=== PATIENT | female | born 1950 | race Caucasian/White ===

== ENCOUNTER 2018-03-03 19:29 | Observation (INO) | payer MEDICARE, MEDICAID ==
[~2018-03-03] VITALS: Ht 162.6 cm; Wt 60.3 kg
[2018-03-03] MEDS ORDERED: QUET100T PO (19:50)
[2018-03-03] MEDS ORDERED: PROP60TA15 PO (19:50)
[2018-03-03] MEDS ORDERED: GABA-549 PO (19:50)
[2018-03-03] MEDS ORDERED: ATOR10TA65 PO (19:50)
[2018-03-03] MEDS ORDERED: MELO-205 PO (19:50)
[2018-03-03] MEDS ORDERED: LAMO150T36 PO (19:50)
--- NOTE | 2018-03-03 20:17 | ER Report ---
History and Physical Time Seen By MD: 20:00 Hx. of Stated Complaint: Patient states she has fainted/collapsed twice within the past 6 weeks HPI/ROS CHIEF COMPLAINT: Falls and imbalance over the last 6 weeks HISTORY OF PRESENT ILLNESS: 67-year-old female patient presents to emergency room with complaint of falls and imbalance of the last 6 weeks. Patient states she wants her blood pressure checked. She states that she has had some falls where she has been walking and then she falls. She is unsure as to why. She states that she is not had any chest pain, shortness of breath, dizziness. She states that there are times where she sways back and forth when she is walking. She states she's not had any weakness in her extremities. She states that she currently has been taking Lamictal but has been on that for a number of years. She is wondering if that could be related to her problems. She states she does see [facility], however does not have a primary care provider. REVIEW OF SYSTEMS: Respiratory: No cough, no dyspnea. Cardiovascular: No chest pain, no palpitations. Gastrointestinal: No vomiting, no abdominal pain. Musculoskeletal: No back pain. Allergies: Coded Allergies: Penicillins (Verified Allergy, Unknown, 03/03/18) Home Meds Reported Medications Lamotrigine (LAMOTRIGINE) 150 Mg Tablet, 150 MG PO DAILY 03/03/18 Atorvastatin Calcium (ATORVASTATIN CALCIUM) 10 Mg Tablet, 1 TAB PO QDAY, TAB 03/03/18 Quetiapine Fumarate (QUETIAPINE FUMARATE) 100 Mg Tablet, 100 MG PO HS 03/03/18 Meloxicam (MELOXICAM) 7.5 Mg Tablet, 7.5 MG PO QDAY 03/03/18 Propranolol Hcl (PROPRANOLOL HCL) 60 Mg Tablet, 40 MG PO BID 03/03/18 Gabapentin (GABAPENTIN) 300 Mg Capsule, 300 MG PO QDAY, CAPSULE 2 caps in AM, 3 caps at HS 03/03/18 Past Medical/Surgical History Patient has a past medical history of hyperlipidemia, bipolar depression. Patient has a surgical history of colectomy. Reviewed Nurses Notes: Yes Constitutional Vital Sign - Last 24 Hours 03/03/18 03/03/18 03/03/18 03/03/18 19:38 19:39 19:59 20:00 Temp 99.3 Pulse 80 69 Resp 15 9 B/P (MAP) 129/84 129/84 (99) 105/66 (79) Pulse Ox 89 O2 Delivery Room Air 03/03/18 03/03/18 03/03/18 03/03/18 20:05 20:20 20:30 20:35 Pulse 69 69 72 Resp 17 24 14 B/P (MAP) 121/71 (88) Pulse Ox 92 92 92 03/03/18 20:50 Pulse 71 Resp 13 Pulse Ox 94 Physical Exam General Appearance: The patient is alert, has no immediate need for airway protection and no current signs of toxicity. Respiratory: Chest is non tender, lungs are clear to auscultation. Cardiac: regular rate and rhythm Gastrointestinal: Abdomen is soft and non tender, no masses, bowel sounds normal. Musculoskeletal: Neck: Neck is supple and non tender. Extremities have full range of motion and are non tender. Skin: No rashes or lesions. Neuro: Patient alert and oriented 4, cranial nerves II through XII grossly intact. DIFFERENTIAL DIAGNOSIS: After history and physical exam differential diagnosis was considered for weakness including but not limited to electrolyte abnormality, depression, anxiety, CVA, spinal cord abnormality, and infectious causes. Medical Decision Making Data Points Result Diagram: 03/03/18202903/03/182029 Laboratory Hematology Test 03/03/18 20:30 Red Blood Count 4.25 M/uL (4.17-5.56) Mean Corpuscular Volume 89.2 fL (80.0-96.0) Mean Corpuscular Hemoglobin 30.2 pg (26.0-33.0) Mean Corpuscular Hemoglobin Concent 33.9 g/dL (32.0-36.0) Red Cell Distribution Width 13.7 % (11.5-14.5) Mean Platelet Volume 8.9 fL (7.2-11.1) Neutrophils (%) (Auto) 64.0 % (39.4-72.5) Lymphocytes (%) (Auto) 20.0 % (17.6-49.6) Monocytes (%) (Auto) 8.6 % (4.1-12.4) Eosinophils (%) (Auto) 6.9 % (0.4-6.7) Basophils (%) (Auto) 0.5 % (0.3-1.4) Nucleated RBC Relative Count (auto) 0.0 /100WBC Neutrophils # (Auto) 4.0 K/uL (2.0-7.4) Lymphocytes # (Auto) 1.3 K/uL (1.3-3.6) Monocytes # (Auto) 0.5 K/uL (0.3-1.0) Eosinophils # (Auto) 0.4 K/uL (0.0-0.5) Basophils # (Auto) 0.0 K/uL (0.0-0.1) Nucleated RBC Absolute Count (auto) 0.00 K/uL Sodium Level 143 mmol/L (137-145) Potassium Level 4.7 mmol/L (3.5-5.0) Chloride Level 107 mmol/L (98-107) Carbon Dioxide Level 28 mmol/L (22-31) Blood Urea Nitrogen 30 mg/dl (7-18) Creatinine 2.00 mg/dl (0.52-1.04) Glomerular Filtration Rate Calc 24.9 Random Glucose 99 mg/dl (75-110) Calcium Level 9.0 mg/dl (8.4-10.2) Total Bilirubin 0.3 mg/dl (0.2-1.3) Aspartate Amino Transf (AST/SGOT) 19 U/L (0-35) Alanine Aminotransferase (ALT/SGPT) 21 U/L (0-56) Alkaline Phosphatase 76 U/L (0-126) Troponin I < 0.012 ng/ml Total Protein 6.6 g/dl (6.3-8.2) Albumin 3.6 g/dl (3.5-5.0) Chemistry Test 03/03/18 20:30 White Blood Count 6.3 k/uL (4.5-11.0) Red Blood Count 4.25 M/uL (4.17-5.56) Hemoglobin 12.8 g/dL (12.0-16.0) Hematocrit 37.9 % (34.0-47.0) Mean Corpuscular Volume 89.2 fL (80.0-96.0) Mean Corpuscular Hemoglobin 30.2 pg (26.0-33.0) Mean Corpuscular Hemoglobin Concent 33.9 g/dL (32.0-36.0) Red Cell Distribution Width 13.7 % (11.5-14.5) Platelet Count 260 K/uL (150-450) Mean Platelet Volume 8.9 fL (7.2-11.1) Neutrophils (%) (Auto) 64.0 % (39.4-72.5) Lymphocytes (%) (Auto) 20.0 % (17.6-49.6) Monocytes (%) (Auto) 8.6 % (4.1-12.4) Eosinophils (%) (Auto) 6.9 % (0.4-6.7) Basophils (%) (Auto) 0.5 % (0.3-1.4) Nucleated RBC Relative Count (auto) 0.0 /100WBC Neutrophils # (Auto) 4.0 K/uL (2.0-7.4) Lymphocytes # (Auto) 1.3 K/uL (1.3-3.6) Monocytes # (Auto) 0.5 K/uL (0.3-1.0) Eosinophils # (Auto) 0.4 K/uL (0.0-0.5) Basophils # (Auto) 0.0 K/uL (0.0-0.1) Nucleated RBC Absolute Count (auto) 0.00 K/uL Glomerular Filtration Rate Calc 24.9 Calcium Level 9.0 mg/dl (8.4-10.2) Total Bilirubin 0.3 mg/dl (0.2-1.3) Aspartate Amino Transf (AST/SGOT) 19 U/L (0-35) Alanine Aminotransferase (ALT/SGPT) 21 U/L (0-56) Alkaline Phosphatase 76 U/L (0-126) Troponin I < 0.012 ng/ml Total Protein 6.6 g/dl (6.3-8.2) Albumin 3.6 g/dl (3.5-5.0) EKG/Imaging EKG Interpretation 12 lead EKG: Rhythm: normal sinus rhythm [place]: Left axis deviation QRS: normal ST segments: Nonspecific T-wave abnormality Imaging EXAMINATION: Chest 2 Views HISTORY: Falls. COMPARISON: None. FINDINGS: The lungs are clear. No focal consolidation or pleural fluid. No pneumothorax. Normal cardiomediastinal silhouette, with normal heart size and pulmonary va scularity. Visualized osseous structures are unremarkable. IMPRESSION: No evidence of acute cardiopulmonary disease. Report Dictated By: Fracisco Momin MD at 03/03/2018 9:10 PM Report E-Signed By: Fracisco Momin MD at 03/03/2018 9:14 PM ED Course/Re-evaluation ED Course Patient was admitted and examined, history and physical were obtained. The differential diagnoses were considered. On examination lungs were clear, heart was regular, abdomen was soft nontender. Patient had good strength in both upper extremities and lower extremities. Cranial nerves II through XII grossly intact. A CBC, CMP, troponin, EKG, chest x-ray done. Patient had a normal white count, troponin was negative, EKG showed a normal sinus rhythm with left axis deviation, chest x-ray was normal. Patient did have an elevated creatinine of 2.0 with a BUN of 30. I discussed the findings with the patient. I'll concerned about possible acute renal failure. I would like to go ahead and admit her. Patient was initially very hesitant. She ultimately did agree. I discussed the case with Dr. Beltran, hospitalist, who agreed to accept the patient for admission. Patient will be admitted with diagnosis of acute renal failure. Decision to Disposition Date: Mar 03, 2018 Decision to Disposition Time: 21:31 Depart Departure Latest Vital Signs Vital Signs Date Time Temp Pulse Resp B/P (MAP) Pulse Ox O2 Delivery O2 Flow Rate FiO2 03/03/18 20:50 71 13 94 03/03/18 20:30 121/71 (88) 03/03/18 19:38 99.3 Room Air Impression: Primary Impression: Acute kidney failure Condition: Condition Unchanged Disposition: Admitted from ER Problem Qualifiers Primary Impression: Acute kidney failure Acute renal failure type: unspecified Qualified Codes: N17.9 - Acute k idney failure, unspecified CALE ESPARZA Mar 03, 2018 20:17
[2018-03-03 20:40] LABS: PLATELET COUNT, AUTOMATED 260 K/uL (150-450)
--- NOTE | 2018-03-03 20:48 | EKG ---
FACILITY: [facility] PATIENT NAME: VIRIDIANA ISLAS : [id number] MR: [id number] V: [id number] EXAM DATE: ORDERING PHYSICIAN: CALE ESPARZA TECHNOLOGIST: RADHA Test Reason : FALLS Blood Pressure : / mmHG Vent. Rate : 069 BPM Atrial Rate : 069 BPM P-R Int : 134 ms QRS Dur : 102 ms QT Int : 400 ms P-R-T Axes : 029 -44 022 degrees QTc Int : 428 ms Normal sinus rhythm Left axis deviation Anterior infarct , age undetermined Abnormal ECG No previous ECGs available Confirmed by Leroy Lynne ([id number]) on 03/03/2018 11:58:13 PM Referred By: Confirmed By:Leroy Marks
--- NOTE | 2018-03-03 21:18 | RADIOLOGY IMAGING REPORT ---
FACILITY: [facility] PATIENT NAME: James Cook : 1950 MR: [id number] V: [id number] EXAM DATE: ORDERING PHYSICIAN: CALE ESPARZA TECHNOLOGIST: Location: [facility] [place] Patient: James Cook : 1950 Visit/Account:[id number] Date of Sevice: 03/03/2018 EXAMINATION: Chest 2 Views HISTORY: Falls. COMPARISON: None. FINDINGS: The lungs are clear. No focal consolidation or pleural fluid. No pneumothorax. Normal cardiomedias tinal silhouette, with normal heart size and pulmonary vascularity. Visualized osseous structures ar e unremarkable. IMPRESSION: No evidence of acute cardiopulmonary disease. Report Dictated By: Fracisco Momin MD at 03/03/2018 9:10 PM Report E-Signed By: Fracisco Momin MD at 03/03/2018 9:14 PM WSN:[id number]
[2018-03-03 22:32] VITALS: BP 148/68
[2018-03-03] MEDS ORDERED: PROP40TA45 PO (23:22)
[2018-03-03] MEDS ORDERED: NS(*) 0.9% 1000 ML BAG 1,000 ML IV PRN (23:28)
[2018-03-03] MEDS ORDERED: ONDANSETRON 4 MG/2 ML VIAL IVP PRN (23:30)
[2018-03-03] MEDS ORDERED: FLUSH 10 ML SYR IVP PRN (23:30)
[2018-03-03] MEDS ORDERED: INFLUENZA VIRUS VAC 0.5ML SYR IM ONLY ONE (23:30)
[2018-03-03] MEDS ORDERED: ACETAMINOPHEN 325 MG TAB PO PRN (23:30)
--- NOTE | 2018-03-03 23:47 | History & Physical ---
History of Present Illness Chief Complaint Unsteadiness History of Present Illness 67F presented with concern for unsteadiness over last couple of weeks. PMHx significant for chronic knee and back pain as well as schizophrenia. Reports times wheree she had to lean on celary to feel steady, was concerned so came to ER. Work up was negative but she was noted to have Cr of 2. Denies previous Hx of renal problems, followed with PCP up until moving from [place] in November. Denies any recent illness but does think she has been dehydrated since her s upplier of Lamictal changed at the pharmacy. History Problems: (1) Schizophrenia (2) Chronic pain Home Meds Reported Medications Propranolol Hcl (PROPRANOLOL HCL) 40 Mg Tablet, 40 MG PO BID 03/03/18 Lamotrigine (LAMOTRIGINE) 150 Mg Tablet, 150 MG PO DAILY 03/03/18 Atorvastatin Calcium (ATORVASTATIN CALCIUM) 10 Mg Tablet, 1 TAB PO QDAY, TAB 03/03/18 Quetiapine Fumarate (QUETIAPINE FUMARATE) 100 Mg Tablet, 100 MG PO HS 03/03/18 Meloxicam (MELOXICAM) 7.5 Mg Tablet, 7.5 MG PO QDAY 03/03/18 Gabapentin (GABAPENTIN) 300 Mg Capsule, 300 MG PO QDAY, CAPSULE 2 caps in AM, 3 caps at HS 03/03/18 Discontinued Reported Medications Propranolol Hcl (PROPRANOLOL HCL) 60 Mg Tablet, 40 MG PO BID 03/03/18 Allergies: Coded Allergies: Penicillins (Verified Allergy, Unknown, 03/03/18) Patient History: FH: NE (myocardial infarction) BROTHER OR SISTER FH: alcoholism BROTHER OR SISTER FH: cancer MOTHER FH: schizophrenia FATHER CHILD FHx: hypertension MOTHER Hx Smoking: No Caffeine Intake: Coffee Caffeine/Cups Per Day: OCC Hx Alcohol Use: Yes Alcohol Used: Wine Hx Substance Use Disorder: No History of IV Drug Use: No Review of Systems All Systems Reviewed/Normal: Yes, Except as Noted Constitutional: No Fever Neurological: Dizziness Gastrointestinal: No Nausea, No Vomiting Exam Vital Signs Vital Signs Date Time Temp Pulse Resp B/P (MAP) Pulse Ox O2 Delivery O2 Flow Rate FiO2 03/03/18 22:32 98.8 76 16 148/68 (94) 92 Room Air General Appearance: Alert, Awake, No Acute Distress Neuro: No Gross deficits Eyes: PERRLA ENT: Normal Neck: No Masses Cardiovascular: Normal Rhythm & Peripheral Pulses Respiratory: No Respiratory Distress GI: Abd Soft and Non-Tender Lymph: Cervical Nodes Benign Musculoskeletal: No Weakness/Pain Extremities: Soft and Non Tender, Warm, Pulses, Perfused; No Edema Integumentary: Skin Intact without Lesion / Mass Psych: Alert & Oriented X3 (inappropriate laguhter) Medical Decision Making Data Points Result Diagram: 03/03/18202903/03/182029 Assessment and Plan Problems: (1) Acute kidney failure Status: Acute Assessment & Plan: Unclear etiology, possible could have some CKD may also be related to NSAID use. UA bland, no recent illnesses, Hgb WNL. BP appears well controlled, glucose WNL. Holding meloxicam. FENa and Renal US pending. IV NS and strict I/O. (2) Dizziness Assessment & Plan: Unclear etiology, suspect could be related to reduced clearance of gabapentin and adverse drug reaction. Will adjust gabapentin dose while renal function decreased. (3) Schizophrenia Assessment & Plan: Continue Seroquel. (4) Chronic pain Assessment & Plan: Hold meloxicam, will use Tylenol PRN. (5) Seizure disorder Assessment & Plan: Patient on Lamictal chronically, will dose gabapentin based on renal clearance. Venous Thromboembolism Antithrombotics Is Pt On Any Antithrombotics?: No (Early ambulation) Exam Sepsis Risk: No Definite Risk Problem Qualifiers (1) Acute kidney failure: Acute renal failure type: unspecified Qualified Codes: N17.9 - Acute kidney failure, unspecified MAURICIO NICOLE DO Mar 03, 2018 23:47
[2018-03-03] MEDS ORDERED: QUEtiapine FUM 100 MG TAB PO SCH (23:55)
[2018-03-04 02:17] VITALS: BP 147/84
[2018-03-04 06:11] LABS: PLATELET COUNT, AUTOMATED 214 K/uL (150-450)
[2018-03-04 07:55] VITALS: BP 103/56
[2018-03-04 08:37] VITALS: Ht 162.6 cm; Wt 60.3 kg
[2018-03-04] MEDS ORDERED: PROPRANOLOL HCL 20 MG TAB PO SCH ×2 (09:00→21:00)
[2018-03-04] MEDS ORDERED: lamoTRIgine 100 MG TAB PO SCH (09:00)
[2018-03-04] MEDS ORDERED: GABAPENTIN 100 MG CAP PO SCH (09:00)
--- NOTE | 2018-03-04 09:04 | Medical Nutrition Therapy ---
Nutrition Anthropometrics Height (Inches): 64.00 Height (Calculated Centimeters: 162.397773 Weight (Pounds): 133 Weight (Calculated Kilograms): 60.328 Garfield Nutrition Score: Adequate Garfield Nutrition Risk Score: 18 Dietary Referral Nutrition Risk Factors: Nutrition Risk Comment: LOST 10 LBS IN 3 MONTHS Physical Findings Physical Appearance: BMI WNL Skin Appearance Skin Appearance: Edema Edema Location Modifier: Edema Location: Type of Edema: Degree of Edema: Gastrointestinal Symptoms GI Symtoms: Tube Present: Bowel Sounds: Recent Bowel Pattern: Stool Characteristics: Nutritional Diagnosis Nutritional Risk Acuity 1: Acute/ES Renal Past Medical History: chronic pain, schizophrenia, bipolar Nutritional Acuity: 1-High Nutrition Diagnosis: Decreased Nutrient Needs Nutrition Etiology: Physiological Causes Nutrition Problem/Etiology/Sym: Decreased protein needs related to physiological causes as evidenced by acute kidney failure, BUN 28 and creatinine 1.6. Energy Requirement: 1750 ([id number] (HB x 1.3-1.5 AF)) Protein Requirement: 48 (.8 g/kg for ARF) Fluid Requirement: 1800 (30 ml/kg) Diet Type: Diet as Tolerated BREONNA/REG Nutrition Intervention: Cont diet as ordered, Encourage intake Nutrition Monitoring & Eval RD Patient Assessment Time: [address] Assessment Type: RD Assessment Patient Nutrition Acuity: 1-High Follow Up Date: Mar 07, 2018 Nutritional Comment: 03/04 Pt admitted with unsteadiness and was found to have acute kidney failure. PMH of chronic pain, schizophrenia and bowel resection. Notable labs include low H/H, BUN 28, creatinine 1.6, tot pro 5.3 and alb 2.8. Currently on BREONNA with no intake to report yet. BMI in normal range. Will cont to monitor and encourage intake. -BRIANNA IBRAHIM Mar 04, 2018 09:04
--- NOTE | 2018-03-04 10:53 | Hospitalist Progress Note ---
Subjective Progress Notes Subjective This patient was admitted for renal failure. She had no acute changes overnight. Patient Complains of: Cardiovascular: No: Chest Pain Respiratory: No: Shortness of Breath Physical Exam Vital Signs Date Time Temp Pulse Resp B/P (MAP) Pulse Ox O2 Delivery O2 Flow Rate FiO2 03/04/18 07:55 98.1 70 12 103/56 (72) 91 Room Air Intake and Output 03/04/18 07:00 Intake Total 400 ml Output Total 30 ml Balance 370 ml Intake Oral 400 ml Output Post Void Residual 30 ml Bladder Scan Volume Amount 11-30 ml # Voids 3 Cardiovascular: Regular Rate and Rhythm Respiratory: Clear to Auscultation Result Diagram: 03/04/1853003/04/18530 Assessment and Plan Problems: (1) Acute kidney failure Status: Acute Assessment & Plan: She did have an elevated creatinine at admission. Although it is unclear what her baseline is. Her creatinine did improve some with IV hydration. A renal ultrasound is ordered, but she has not been able to comply with keeping a full bladder. (2) Dizziness Assessment & Plan: The etiology is unclear. Her gabapentin dose was decreased slightly. (3) Schizophrenia Assessment & Plan: She is on chronic treatment with Seroquel. (4) Chronic pain Assessment & Plan: Her meloxicam has been discontinued secondary to her renal function. (5) Seizure disorder Assessment & Plan: She is on chronic treatment with Lamictal. Exam Sepsis Risk: No Definite Risk Problem Qualifiers (1) Acute kidney failure: Acute renal failure type: unspecified Qualified Codes: N17.9 - Acute kidney failure, unspecified CHIRAG DYER DO Mar 04, 2018 10:53
[2018-03-04 12:26] VITALS: BP 125/88
--- NOTE | 2018-03-04 13:08 | RADIOLOGY IMAGING REPORT ---
FACILITY: [facility] PATIENT NAME: James Cook : 1950 MR: [id number] V: [id number] EXAM DATE: ORDERING PHYSICIAN: MAURICIO BAE TECHNOLOGIST: Location: [facility] Patient: James Cook : 1950 Visit/Account:[id number] Date of Sevice: 03/03/2018 KIDNEYS EXAMINATION: Renal ultrasound. History: AK I, dehydration COMPARISON STUDIES: FINDINGS: Kidneys: Right kidney- 9 x 4.1 x 4.8 cm Left kidney- 9.7 x 3.5 x 3.8 cm Uniform and symmetric blood flow in each kidney by Doppler ultrasound. Hydronephrosis: none Resistive index on the right 0.59 on the left 0.65 Bladder: Prevoid volume 600 mL. Post void residual 4 mL. Bilateral ureteral jets are present Abdominal aorta and IVC: Aorta and IVC are patent by Doppler ultrasound. Additional images of the pelvis were submitted demonstrating a 1.7 cm round hypoechoic mass projectin g from the posterior aspect uterine fundus which may represent a fibroid IMPRESSION: No sonographic abnormality of the kidneys are seen Additional images of the pelvis were submitted demonstrating a 1.7 cm round hypoechoic mass posterior aspect uterine fundus which may represent fibroid Report Dictated By: Carola uPgh MD at 03/04/2018 1:00 PM Report E-Signed By: Carola Pugh MD at 03/04/2018 1:04 PM WSN:[id number]
[2018-03-04] MEDS ORDERED: GABA-547 PO (13:11)
--- NOTE | 2018-03-04 13:15 | Hospitalist Depart ---
Discharge Summary Reason for Hosp/Final Diag: (1) Acute kidney failure Status: Acute Hospital Course & Plan: She did have an elevated creatinine at admission. Although it is unclear what her baseline is. Her creatinine did improve some with IV hydration. A renal ultrasound did not sure any structural abnormalities. (2) Uterine fibroid Hospital Course & Plan: This was incidentally noted on her renal ultrasound. She will need to follow up with gynecology for further evaluation. (3) Dizziness Hospital Course & Plan: The etiology is unclear. Her gabapentin dose was decreased slightly. (4) Schizophrenia Hospital Course & Plan: She is on chronic treatment with Seroquel. (5) Chronic pain Hospital Course & Plan: Her meloxicam has been discontinued secondary to her renal function. (6) Seizure disorder Hospital Course & Plan: She is on chronic treatment with Lamictal. Departure Latest Vital Signs Vital Signs 03/04/18 12:26 Temp 98.0 Pulse 71 Resp 12 B/P (MAP) 125/88 (100) Pulse Ox 93 O2 Delivery Room Air Weight (Pounds): 133 Result Diagram: 03/04/1853003/04/18530 Condition: Improved Discharge: Home, Self Care Discharge Instructions Home Meds Active Scripts Gabapentin (GABAPENTIN) 100 Mg Capsule, 200 MG PO QDAY, #60 CAPSULE Prov:MANISHACHIRAG DO 03/04/18 Reported Medications Propranolol Hcl (PROPRANOLOL HCL) 40 Mg Tablet, 40 MG PO BID 03/03/18 Lamotrigine (LAMOTRIGINE) 150 Mg Tablet, 150 MG PO DAILY 03/03/18 Atorvastatin Calcium (ATORVASTATIN CALCIUM) 10 Mg Tablet, 1 TAB PO QDAY, TAB 03/03/18 Quetiapine Fumarate (QUETIAPINE FUMARATE) 100 Mg Tablet, 100 MG PO HS 03/03/18 Discontinued Reported Medications Meloxicam (MELOXICAM) 7.5 Mg Tablet, 7.5 MG PO QDAY 03/03/18 Gabapentin (GABAPENTIN) 300 Mg Capsule, 300 MG PO QDAY, CAPSULE 2 caps in AM, 3 caps at HS 03/03/18 Propranolol Hcl (PROPRANOLOL HCL) 60 Mg Tablet, 40 MG PO BID 03/03/18 Diet: Regular Activity: As Tolerated Venous Thromboembolism Antithrombotics Is Pt On Any Antithrombotics?: No (Early ambulation) Problem Qualifiers (1) Acute kidney failure: Acute renal failure type: unspecified Qualified Codes: N17.9 - Acute kidney failure, unspecified CHIRAG DYER DO Mar 04, 2018 13:15
[2018-03-04] MEDS ORDERED: ATORVASTATIN 10 MG TAB PO SCH (21:00)
== END 2018-03-04 13:11 | disposition home or self-care (01) ==
LOC: ER 20:31 → INTOOBSV 22:14 → MED 22:14
PROVIDERS: ADMIT Internal Medicine; ATTEND Internal Medicine
DX: N17.9 Acute kidney failure, unspecified (principal); F20.9 Schizophrenia, unspecified; G40.909 Epilepsy, unspecified, not intractable, without status epilepticus; D25.9 Leiomyoma of uterus, unspecified
CPT/HCPCS: 36415; 71046; 76705; 81001; 82570; 84300; 84484; 85025; 93005; 97161; 97165; 99284; A9270; G0378; J7030; 82040; 82247; 82310; 82374; 82435; 82565; 82947; 84075; 84132; 84155; 84295; 84450; 84460; 84520

== ENCOUNTER → 2018-03-11 | Outpatient (CLI) | payer MEDICARE, MEDICAID ==
[2018-03-04 08:37] VITALS: BMI 22.8
[~2018-03-11] MED LIST: ATOR10TA65 PO; GABA-547 PO; GABA-549 PO; LAMO150T36 PO; MELO-205 PO; PROP40TA45 PO; PROP60TA15 PO; QUET100T PO
[2018-03-11 15:59] LABS: PLATELET COUNT, AUTOMATED 287 K/uL (150-450)
== END ==
LOC: LAB 15:26
PROVIDERS: ATTEND Internal Medicine
DX: N17.9 Acute kidney failure, unspecified (principal); F31.9 Bipolar disorder, unspecified; D25.9 Leiomyoma of uterus, unspecified; E78.5 Hyperlipidemia, unspecified; D64.9 Anemia, unspecified; E78.49 Other hyperlipidemia
CPT/HCPCS: 36415; 81001; 82040; 82247; 82310; 82374; 82435; 82465; 82565; 82607; 82728; 82746; 82947; 83540; 83550; 83718; 84075; 84132; 84155; 84295; 84443; 84450; 84460; 84478; 84520; 84550; 85025